=== PATIENT | male | born 2000 | race Caucasian/White ===

== ENCOUNTER 2021-12-27 11:48 | Emergency (ER) | payer OTHER ==
[~2021-12-27] VITALS: Ht 167.6 cm; Wt 86.5 kg
[2021-12-27] MEDS ORDERED: TACR0.1O EX (16:47)
[2021-12-27] MEDS ORDERED: PROT0.1O TOP (16:53)
[2021-12-27 17:10] VITALS: BP 143/67
== END 2021-12-27 17:18 | disposition home or self-care (01) ==
LOC: M ED 11:48
DX: L25.9 Unspecified contact dermatitis, unspecified cause (principal)

== ENCOUNTER 2023-05-02 08:50 | Emergency (ER) | payer OTHER ==
[~2023-05-02] VITALS: Ht 167.6 cm; Wt 81.5 kg
[~2023-05-02 08:50] MED LIST: PROT0.1O TOP; TACR0.1O EX
[2023-05-02 08:51] VITALS: BP 138/68; TEMP 98.1; O2SAT 98
[2023-05-02] MEDS ORDERED: DOXY-444 PO (09:05)
[2023-05-02] MEDS ORDERED: ISOVUE-370 76% 100ML VIAL As Ordered ONE (14:50)
== END 2023-05-02 11:05 | disposition left against medical advice (07) ==
LOC: M ED 08:50
DX: Z53.21 Procedure and treatment not carried out due to patient leaving prior to being seen by health care provider (principal)

== ENCOUNTER 2023-05-02 11:18 | Emergency (ER) | payer OTHER ==
[~2023-05-02] VITALS: Ht 170.2 cm; Wt 81.1 kg
[~2023-05-02 11:18] MED LIST changes: +DOXY-444 PO
[2023-05-02 13:20] LABS: BASO # 0.1 10^3/uL (0.0-0.2); EOS # 0.2 10^3/uL (0.0-0.5); EOS % 2.3 % (0.0-3.0); HEMATOCRIT 44.4 % (42.0-52.0); HEMOGLOBIN 14.7 g/dl (13.5-17.5); LYMPH % 28.2 % (24.0-44.0); MEAN CORPUSCULAR HEMOGLOBIN 29.5 pg (27.0-33.0); MEAN CORPUSCULAR HGB CONC 33.1 g/dl (32.0-36.5); MONO # 0.6 10^3/uL (0.0-0.8); MONO % 7.8 % (2.0-8.0); NEUTROPHILS # 4.2 10^3/uL (1.5-8.5); NEUTROPHILS % 60.4 % (36.0-66.0); PLATELET COUNT, AUTOMATED 259 10^3/uL (150-450); RED BLOOD COUNT 4.99 10^6/uL (4.30-6.10)
[2023-05-02 13:39] LABS: LIPASE 24 U/L (12-53)
[2023-05-02 13:41] LABS: ALBUMIN 4.3 G/DL (3.2-5.2); ALKALINE PHOSPHATASE 62 U/L (46-116); ALT/SGPT 17 U/L (7.0-40); AST/SGOT 18 U/L (<34); BILIRUBIN,DIRECT 0.2 MG/DL (<0.4); BILIRUBIN,TOTAL 0.6 MG/DL (0.3-1.2); BLOOD UREA NITROGEN 12 MG/DL (9-23); CALCIUM LEVEL 9.1 MG/DL (8.5-10.1); CARBON DIOXIDE LEVEL 28 MMOL/L (20-31); CHLORIDE LEVEL 106 MMOL/L (98-107); GLOMERULAR FILTRATION RATE > 60.0 (>60); GLUCOSE, FASTING 93 MG/DL (60-100); POTASSIUM SERUM 4.5 MMOL/L (3.5-5.1); SODIUM LEVEL 138 MMOL/L (136-145); TOTAL PROTEIN 7.1 G/DL (5.7-8.2)
[2023-05-02] MEDS ORDERED: KETOROLAC 30 MG/ML 1ML VIAL IV ONE (14:15)
[2023-05-02 16:16] VITALS: BP 130/72; TEMP 98.2; O2SAT 100
[2023-05-03 23:32] LABS: GC DNA AMPLIFICATION NEGATIVE (NEGATIVE)
== END 2023-05-02 16:17 | disposition home or self-care (01) ==
LOC: M ED 11:18
DX: I86.1 Scrotal varices (principal); R10.84 Generalized abdominal pain; K76.0 Fatty (change of) liver, not elsewhere classified
CPT/HCPCS: 74177; 80048; 80076; 81001; 83690; 85025; 87661; 87810; 87850; 96374; 99283; J1885